=== PATIENT | female | born 1995 | race Caucasian/White ===

== ENCOUNTER → 2017-11-20 | Outpatient (CLI) | payer MEDICAID ==
[~2017-11-20] MED LIST: ACHYD1T PO; AMOX500C2 PO; IBUP-1773 PO; MULT-228 PO
--- NOTE | 2017-11-20 17:16 | Diagnostic Imaging Report ---
INDICATION: Gestational age determination. TECHNIQUE: Multiple real-time grayscale images were obtained over the gravid uterus. COMPARISON: None FINDINGS: There is a single living intrauterine in variable presentation. The placenta is posterior, not low. Amniotic fluid volume was within normal limits. heart rate was 143 beats per minute. Estimated gestational age is 16 weeks 3 days. IMPRESSION: Single living intrauterine with estimated gestational age of 16 weeks 3 days plus or minus 1-1/2 weeks. Dictated by: Dictated on workstation # [id number]
== END ==
LOC: RAD 16:39
PROVIDERS: ATTEND Family Medicine
DX: Z34.92 Encounter for supervision of normal pregnancy, unspecified, second trimester (principal); Z3A.16 16 weeks gestation of pregnancy
CPT/HCPCS: 76805

== ENCOUNTER → 2018-02-04 | Outpatient (CLI) | payer MEDICAID ==
[~2018-02-04] MED LIST changes: +ACHD5005 PO; +DOCU100C37 PO; +IBUP-844 PO
--- NOTE | 2018-02-04 16:52 | Diagnostic Imaging Report ---
INDICATION: Survey and evaluate cervical length. TECHNIQUE: Multiple Real-time grayscale images were obtained over the gravid uterus. COMPARISON: 11/20/2017. FINDINGS: There is a single living intrauterine in breech presentation. There is a normal volume of amniotic fluid. The placenta is posterior with no previa. The anatomical evaluation is unremarkable apart from the fact that a four-chamber heart was not well seen. There was a three-vessel cord. The heart is 150 BPM and regular. The cervical length is 2 cm. The maternal adnexa are unremarkable. The sonographically estimated gestational age is 27 weeks 5 days. IMPRESSION: There is a single living intrauterine with a sonographically estimated gestational age of 27 weeks 5 days and an estimated date of confinement of 05/01/2018. A four chamber heart was not well visualized on today's exam. The cervix is shortened to 2 cm. Dictated by: Dictated on workstation # [id number]
== END ==
LOC: RAD 14:22
PROVIDERS: ATTEND Family Medicine
DX: Z36.89 Encounter for other specified antenatal screening (principal); O26.872 Cervical shortening, second trimester; Z3A.27 27 weeks gestation of pregnancy
CPT/HCPCS: 76805

== ENCOUNTER 2018-03-16 22:45 | Outpatient (CLI) | payer MEDICAID ==
[~2018-03-16] VITALS: Ht 158.8 cm; Wt 80.5 kg
[~2018-03-16 22:45] MED LIST changes: -ACHD5005 PO; -DOCU100C37 PO; -IBUP-844 PO
[2018-03-16 23:07] VITALS: BP 118/57
[2018-03-16] MEDS ORDERED: NS IV 1000 ML 1,000 ML ONE (23:10)
[2018-03-16] MEDS ORDERED: NS IV 1000 ML 1,000 ML IV ONE (23:15)
--- NOTE | 2018-03-19 15:56 | Physician Query-Final Dx ---
TJ CANTU 03/19/18 1556: Clinic Account Progress/Dx Physician Query: Please give diagnosis Date of Service March 16, 2018 at 22:45 AIXA VIRK MD 03/28/18 0938: Clinic Account Progress/Dx DIAGNOSIS: Diagnosis 33 weeks gestation Abdominal pain in TJ CANTU March 19, 2018 15:56 AIXA VIRK MD Mar 28, 2018 09:38
== END 2018-03-17 00:33 | disposition home or self-care (01) ==
LOC: WSo 22:45 → LDRP 22:45 → WSo 03-17 00:33
PROVIDERS: ATTEND Family Medicine
DX: O99.89 Other specified diseases and conditions complicating pregnancy, childbirth and the puerperium (principal); R10.9 Unspecified abdominal pain; Z3A.33 33 weeks gestation of pregnancy
CPT/HCPCS: 99213

== ENCOUNTER 2018-04-09 01:21 | Inpatient (IN) | payer MEDICAID ==
[~2018-04-09] VITALS: Ht 157.5 cm; Wt 80.8 kg
[2018-04-09] VITALS (7 sets, daily range): BP systolic 90–125; BP diastolic 53–88
--- OUTSIDE RECORDS SUMMARY | 2018-04-09 01:56 | XMS REPORT | Continuity of Care Document ---
Demographics Preferred Language Unknown Marital Status Unknown Religion Affiliation Unknown Race Unknown Ethnic Group Unknown Author Author Formerly [facility] Address Unknown Phone Unavailable Allergies Active Description Code Type Severity Reaction Onset Reported/Identified Relationship to Patient Clinical Status Yes No Known Drug Allergies [id number] Drug Allergy Unknown N/A 03/11/2012 Medications There is no data. Problems Date Dx Coded Attending Type Code Diagnosis Diagnosed By 11/18/2009 564.00 CONSTIPATION CHRONIC 11/18/2009 789.00 abdominal pain 12/16/2009 009.1 COLITIS, ENTERITIS, AND GASTROENTERITIS OF PRESUMED INFECTIOUS ORIGIN 06/16/2010 V25.40 CONTRACEPTIVE SURVEILLANCE UNSPECIFIED 08/01/2010 388.70 EAR ACHE 12/02/2010 461.9 SINUSITIS ACUTE 12/02/2010 462 ACUTE PHARYNGITIS 03/11/2012 Ot 462 ACUTE PHARYNGITIS 06/20/2012 346.90 HEADACHE, MIGRAINE 06/20/2012 651.00 , HIGH RISK W/ MULTIPLE GESTATIONS 08/14/2013 ABBY VAZQUEZ MD Ot 649.53 SPOTTING COMP , ANTEPARTUM COND 09/27/2013 ABBY VAZQUEZ MD Ot 623.5 NONINFECT VAG LEUKORRHEA 09/27/2013 ABBY VAZQUEZ MD Ot 654.73 ABNORM VAGINA-ANTEPARTUM 10/22/2013 ABBY VAZQUEZ MD Ot 650 NORMAL DELIVERY 10/22/2013 ABBY VAZQUEZ MD Ot V27.0 DELIVER-SINGLE LIVEBORN 10/17/2014 ABBY VAZQUEZ MD Ot 649.63 10/17/2014 ABBY VAZQUEZ MD Ot 649.63 10/17/2014 ABBY VAZQUEZ MD Ot 658.03 05/11/2016 ABBY VAZQUEZ MD, Ot 649.63 UTERINE SIZE DATE DISCREPANCY, ANTEPARTU 05/11/2016 ABBY VAZQUEZ MD, Ot 649.63 UTERINE SIZE DATE DISCREPANCY, ANTEPARTU 05/11/2016 ABBY VAZQUEZ MD Ot 658.03 OLIGOHYDRAMNIOS-ANTEPAR 05/12/2016 ABBY VAZQUEZ MD, Ot Z36 ENCOUNTER FOR SCREENING OF MOT 05/12/2016 ABBY VAZQUEZ MD, Ot Z3A.08 8 WEEKS GESTATION OF 05/12/2016 ABBY VAZQUEZ MD, Ot Z36 ENCOUNTER FOR SCREENING OF MOT 05/12/2016 ABBY VAZQUEZ MD, Ot Z3A.08 8 WEEKS GESTATION OF 07/07/2016 ABBY VAZQUEZ MD, Ot Z36 ENCOUNTER FOR SCREENING OF MOT 07/07/2016 ABBY VAZQUEZ MD, Ot Z3A.08 8 WEEKS GESTATION OF 07/07/2016 ABBY VAZQUEZ MD Ot Z36 ENCOUNTER FOR SCREENING OF MOT 07/07/2016 ABBY VAZQUEZ MD, Ot Z3A.08 8 WEEKS GESTATION OF 07/18/2016 ABBY AVZQUEZ MD, Ot Z36 ENCOUNTER FOR SCREENING OF MOT 07/18/2016 ABBY VAZQUEZ MD, Ot Z3A.08 8 WEEKS GESTATION OF 07/31/2016 ABBY VAZQUEZ MD Ot Z36 ENCOUNTER FOR SCREENING OF MOT 08/09/2016 ABBY VAZQUEZ MD Ot Z36 ENCOUNTER FOR SCREENING OF MOT 09/24/2016 ABBY VAZQUEZ MD Ot Z36 ENCOUNTER FOR SCREENING OF MOT 09/24/2016 ABBY VAZQUEZ MD, Ot Z3A.08 8 WEEKS GESTATION OF 09/24/2016 ABBY VAZQUEZ MD Ot Z36 ENCOUNTER FOR SCREENING OF MOT 09/24/2016 ABBY VAZQUEZ MD Ot Z36 ENCOUNTER FOR SCREENING OF MOT 09/24/2016 ABBY VAZQUEZ MD, Ot Z3A.08 8 WEEKS GESTATION OF 09/24/2016 ABBY VAZQUEZ MD Ot Z36 ENCOUNTER FOR SCREENING OF MOT 09/26/2016 TUNDE ACKERMAN DOA K Ot O60.03 LABOR WITHOUT DELIVERY, THIRD TR 09/26/2016 DAVIS ACKERMAN DO Ot Z3A.28 28 WEEKS GESTATION OF 10/16/2016 OLYA RAMACHANDRAN MD, Ot O42.913 PRETRM TOMASA ROM, UNSP TIME BETW RUPT AND 10/16/2016 OLYA RAMACHANDRAN MD, Ot Z3A.31 31 WEEKS GESTATION OF 11/20/2017 ABBY VAZQUEZ MD, Ot Z36 ENCOUNTER FOR SCREENING OF MOT 11/20/2017 ABBY VAZQUEZ MD, Ot Z3A.08 8 WEEKS GESTATION OF 11/20/2017 ABBY VAZQUEZ MD, Ot Z36 ENCOUNTER FOR SCREENING OF MOT 11/21/2017 ABBY VAZQUEZ MD, Ot Z34.92 ENCNTR FOR SUPRVSN OF NORMAL PREG, UNSP, 11/21/2017 ABBY VAZQUEZ MD, Ot Z3A.16 16 WEEKS GESTATION OF 11/26/2017 ABBY VAZQUEZ MD, Ot Z34.92 ENCNTR FOR SUPRVSN OF NORMAL PREG, UNSP, 11/26/2017 ABBY VAZQUEZ MD, Ot Z3A.16 16 WEEKS GESTATION OF 12/04/2017 ABBY VAZQUEZ MD, Ot Z34.92 ENCNTR FOR SUPRVSN OF NORMAL PREG, UNSP, 12/04/2017 ABBY VAZQUEZ MD, Ot Z3A.16 16 WEEKS GESTATION OF 01/31/2018 ABBY VAZQUEZ MD, Ot Z36 ENCOUNTER FOR SCREENING OF MOT 01/31/2018 ABBY VAZQUEZ MD, Ot Z3A.08 8 WEEKS GESTATION OF 01/31/2018 ABBY VAZQUEZ MD, Ot Z36 ENCOUNTER FOR SCREENING OF MOT 01/31/2018 ABBY VAZQUEZ MD, Ot Z34.92 ENCNTR FOR SUPRVSN OF NORMAL PREG, UNSP, 01/31/2018 ABBY VAZQUEZ MD, Ot Z3A.16 16 WEEKS GESTATION OF 02/19/2018 ABBY VAZQUEZ MD, Ot O26.872 CERVICAL SHORTENING, SECOND TRIMESTER 02/19/2018 ABBY VAZQUEZ MD, Ot Z36.89 ENCOUNTER FOR OTHER SPECIFIED 02/19/2018 ABBY VAZQUEZ MD, Ot Z3A.27 27 WEEKS GESTATION OF 03/29/2018 AIXA VIRK MD, Ot O99.89 OTH DISEASES AND CONDITIONS COMPL PREG/C 03/29/2018 AIXA VIRK MD, Ot R10.9 UNSPECIFIED ABDOMINAL PAIN 03/29/2018 AIXA VIRK MD, Ot Z3A.33 33 WEEKS GESTATION OF Procedures Code Description Performed By Performed On 96.49 10/19/2013 73.6 10/20/2013 Results Test Result Range Complete blood count (CBC) with automated white blood cell (WBC) differential - 09/24/16 10:00 Blood leukocytes automated count (number/volume) 9.2 10*3/uL 4.3-11.0 Blood erythrocytes automated count (number/volume) 4.19 10*6/uL 4.35-5.85 Venous blood hemoglobin measurement (mass/volume) 12.5 g/dL 11.5-16.0 Blood hematocrit (volume fraction) 38 % 35-52 Automated erythrocyte mean corpuscular volume 90 [foz_us] 80-99 Automated erythrocyte mean corpuscular hemoglobin (mass per erythrocyte) 30 pg 25-34 Automated erythrocyte mean corpuscular hemoglobin concentration measurement ( mass/volume) 33 g/dL 32-36 Automated erythrocyte distribution width ratio 13.7 % 10.0-14.5 Automated blood platelet count (count/volume) 207 10*3/uL 130-400 Automated blood platelet mean volume measurement 11.5 [foz_us] 7.4-10.4 Automated blood neutrophils/100 leukocytes 73 % 42-75 Automated blood lymphocytes/100 leukocytes 16 % 12-44 Blood monocytes/100 leukocytes 9 % 0-12 Automated blood eosinophils/100 leukocytes 1 % 0-10 Automated blood basophils/100 leukocytes 0 % 0-10 Blood neutrophils automated count (number/volume) 6.7 10*3 1.8-7.8 Blood lymphocytes automated count (number/volume) 1.5 10*3 1.0-4.0 Blood monocytes automated count (number/volume) 0.8 10*3 0.0-1.0 Automated eosinophil count 0.1 10*3/uL 0.0-0.3 Automated blood basophil count (count/volume) 0.0 10*3/uL 0.0-0.1 Comprehensive metabolic panel - 09/24/16 10:00 Serum or plasma sodium measurement (moles/volume) 139 mmol/L 135-145 Serum or plasma potassium measurement (moles/volume) 3.5 mmol/L 3.6-5.0 Serum or plasma chloride measurement (moles/volume) 110 mmol/L 98-107 Carbon dioxide 22 mmol/L 21-32 Serum or plasma anion gap determination (moles/volume) 7 mmol/L 5-14 Serum or plasma urea nitrogen measurement (mass/volume) 6 mg/dL 7-18 Serum or plasma creatinine measurement (mass/volume) 0.58 mg/dL 0.60-1.30 Serum or plasma urea nitrogen/creatinine mass ratio 10 NRG Serum or plasma creatinine measurement with calculation of estimated glomerular filtration rate > NRG Serum or plasma glucose measurement (mass/volume) 78 mg/dL 70-105 Serum or plasma calcium measurement (mass/volume) 9.3 mg/dL 8.5-10.1 Serum or plasma total bilirubin measurement (mass/volume) 0.2 mg/dL 0.1-1.0 Serum or plasma alkaline phosphatase measurement (enzymatic activity/volume) 87 U/L 40-136 Serum or plasma aspartate aminotransferase measurement (enzymatic activity/ volume) 15 U/L 5-34 Serum or plasma alanine aminotransferase measurement (enzymatic activity/volume ) 13 U/L 0-55 Serum or plasma protein measurement (mass/volume) 6.9 g/dL 6.4-8.2 Serum or plasma albumin measurement (mass/volume) 3.6 g/dL 3.2-4.5 [id number] - 09/24/16 10:00 [id number] SPECIMEN AVAILABLE NRG Bacteria identification in genital specimen by aerobe culture - 09/24/16 11:15 FREE TEXT EXTERNAL PLUS NORMAL SILVANO NRG QUANTITY OF GROWTH Moderate Growth NRG Bacteria identification in genital specimen by aerobe culture [id number] NRG Neisseria gonorrhoeae detection by organism specific culture - 09/24/16 11:15 Neisseria gonorrhoeae detection by organism specific culture TNP NRG Streptococcus agalactiae detection by organism specific culture - 09/24/16 11: 15 Streptococcus agalactiae detection by organism specific culture TNP NRG Chlamydia trachomatis DNA detection by probe and signal amplification method - 09/24/16 11:15 Chlamydia trachomatis DNA detection by probe and target amplification method Negative Negative Complete blood count (CBC) with automated white blood cell (WBC) differential - 10/16/16 12:13 Blood leukocytes automated count (number/volume) 10.2 10*3/uL 4.3-11.0 Blood erythrocytes automated count (number/volume) 4.14 10*6/uL 4.35-5.85 Venous blood hemoglobin measurement (mass/volume) 12.3 g/dL 11.5-16.0 Blood hematocrit (volume fraction) 37 % 35-52 Automated erythrocyte mean corpuscular volume 88 [foz_us] 80-99 Automated erythrocyte mean corpuscular hemoglobin (mass per erythrocyte) 30 pg 25-34 Automated erythrocyte mean corpuscular hemoglobin concentration measurement ( mass/volume) 34 g/dL 32-36 Automated erythrocyte distribution width ratio 13.4 % 10.0-14.5 Automated blood platelet count (count/volume) 190 10*3/uL 130-400 Automated blood platelet mean volume measurement 11.5 [foz_us] 7.4-10.4 Automated blood neutrophils/100 leukocytes 80 % 42-75 Automated blood lymphocytes/100 leukocytes 13 % 12-44 Blood monocytes/100 leukocytes 6 % 0-12 Automated blood eosinophils/100 leukocytes 1 % 0-10 Automated blood basophils/100 leukocytes 0 % 0-10 Blood neutrophils automated count (number/volume) 8.1 10*3 1.8-7.8 Blood lymphocytes automated count (number/volume) 1.4 10*3 1.0-4.0 Blood monocytes automated count (number/volume) 0.7 10*3 0.0-1.0 Automated eosinophil count 0.1 10*3/uL 0.0-0.3 Automated blood basophil count (count/volume) 0.0 10*3/uL 0.0-0.1 Blood type T Indirect antibody screen panel - 10/16/16 12:13 ABO+Rh group AP NRG Transfusion band number [id number] NRG Blood group antibody screen NEGATIVE NRG Encounters ACCT No. Visit Date/Time Discharge Status Pt. Type Provider Facility Loc./Unit Complaint [id number] 06/20/2012 15:38:00 06/20/2012 23:59:59 CLS Outpatient [id number] 01/03/2013 15:49:19 RECURRING [facility] 09/26/2013 23:57:37 ACT Document Registration [id number] 03/16/2018 22:45:00 03/17/2018 00:33:00 DIS Outpatient AIXA VIRK MD [facility] WSo CRAMPING [id number] 02/04/2018 14:22:00 02/04/2018 23:59:59 CLS Outpatient ABBY VAZQUEZ MD [facility] RAD HX OF LABOR( CHECK CERVIX LENGTH) [id number] 11/20/2017 16:39:00 11/20/2017 23:59:59 CLS Outpatient ABBY VAZQUEZ MD [facility] RAD DATE [id number] 10/16/2016 11:49:00 10/16/2016 13:40:00 DIS Outpatient OLYA RAMACHANDRAN MD [facility] WSo [employer]PTURED [employer]ES [id number] 09/24/2016 01:30:00 09/26/2016 10:40:00 DIS Inpatient MEKA NAQVI DAVIS K [facility] LDRP CERVICAL DILATION [id number] 07/28/2016 15:27:00 07/28/2016 23:59:59 CLS Outpatient ABBY VAZQUEZ MD [facility] RAD SURVEY [id number] 05/11/2016 09:09:00 05/11/2016 23:59:59 CLS Outpatient ABBY VAZQUEZ MD [facility] RAD DATING [id number] 10/19/2013 20:37:00 10/22/2013 12:05:00 DIS Inpatient ABBY VAZQUEZ MD [facility] WS [id number] 09/26/2013 23:53:00 09/27/2013 02:12:00 DIS Outpatient ABBY VAZQUEZ MD [facility] WSo [id number] 08/21/2013 11:53:00 08/21/2013 23:59:59 CLS Outpatient ABBY VAZQUEZ MD [facility] RAD [id number] 08/14/2013 12:08:00 08/14/2013 14:20:00 DIS Outpatient ABBY VAZQUEZ MD [facility] WSo [id number] 06/12/2013 13:27:00 06/12/2013 23:59:59 CLS Outpatient ABBY VAZQUEZ MD [facility] RAD [id number] 03/27/2013 12:30:00 03/27/2013 23:59:59 CLS Outpatient ABBY VAZQUEZ MD [facility] RAD [id number] 03/11/2012 21:59:00 Document Registration
[2018-04-09] MEDS ORDERED: D5 LR IV SOLUTION 1,000 ML IV SCH (02:00)
[2018-04-09] MEDS ORDERED: CITRIC ACID/SOB CIT (BICITRA) 30 ML UDC ONE (02:05)
[2018-04-09] MEDS ORDERED: METOCLOPRAMIDE INJ 10 MG/2 ML (REGLAN) ONE (02:05)
[2018-04-09] MEDS: LACTATED RINGERS 1,000 ML IV SCH ×2 (02:06→02:14)
[2018-04-09] MEDS ORDERED: NS (IVPB) 50 ML ONE (02:06)
[2018-04-09] MEDS ORDERED: raNItidine 50 MG/2 ML INJ (ZANTAC) ONE (02:06)
[2018-04-09 02:09] LABS: BASOPHILS % (AUTO) 0 % (0-10); EOSINOPHILS # (AUTO) 0.2 10^3/uL (0.0-0.3); EOSINOPHILS % (AUTO) 2 % (0-10); HEMATOCRIT 35 % (35-52); HEMOGLOBIN 12.3 G/DL (11.5-16.0); LYMPHOCYTES # (AUTO) 1.5 X 10^3 (1.0-4.0); LYMPHOCYTES % (AUTO) 13 % (12-44); MEAN CORPUSCULAR HEMOGLOBIN 31 PG (25-34); MEAN CORPUSCULAR HGB CONC 35 G/DL (32-36); MEAN CORPUSCULAR VOLUME 89 FL (80-99); MEAN PLATELET VOLUME 12.1 FL (7.4-10.4); MONOCYTES # (AUTO) 1.1 X 10^3 (0.0-1.0); MONOCYTES % (AUTO) 9 % (0-12); NEUTROPHILS # (AUTO) 9.3 X 10^3 (1.8-7.8); NEUTROPHILS % (AUTO) 77 % (42-75); PLATELET COUNT 244 10^3/uL (130-400); RED BLOOD COUNT 3.95 10^6/uL (4.35-5.85); RED CELL DISTRIBUTION WIDTH 14.3 % (10.0-14.5); WHITE BLOOD COUNT 12.1 10^3/uL (4.3-11.0)
[2018-04-09] MEDS ORDERED: ceFAZolin 2 GM IV Premixed 50 ML IV ONE (02:11)
[2018-04-09] MEDS ORDERED: ceFAZolin 2 GM IV Premixed 50 ML ONE (02:12)
[2018-04-09] MEDS ORDERED: LACTATED RINGERS 1,000 ML IV PRN (02:13)
[2018-04-09] MEDS ORDERED: CITRIC ACID/SOB CIT (BICITRA) 30 ML UDC PO ONE (02:15)
[2018-04-09] MEDS ORDERED: raNItidine INJECTION 50 MG in NS (IVPB) 50 ML IV ONE (02:15)
[2018-04-09] MEDS ORDERED: TERBUTALINE INJ 1 MG/ML (BRETHINE) AMP SC ONE (02:15)
[2018-04-09] MEDS ORDERED: METOCLOPRAMIDE INJ 10 MG/2 ML (REGLAN) IV ONE (02:15)
--- NOTE | 2018-04-09 02:28 | History & Physical-OB ---
OB - Chief Complaint & HPI Date/Time Date of Admission: Date of Admission: Apr 09, 2018 at 01:52 Time Seen by Provider: 02:00 Chief Complaint/History OB-Reason for Admission/Chief: Onset of Labor (at 36w3d) Hx : 3 Hx Para: 2 Expected Date of Delivery: May 04, 2018 Gestational Age in Weeks: 36 Gestational Age in Days: 3 Indication for : malpresentation (breech) Admission Nurse Assessment Rev: Yes Allergies and Home Medications Allergies Coded Allergies: No Known Drug Allergies (Unverified , 03/11/12) Home Medications Multivitamin 1 Each Tab.chew, 1 EACH PO DAILY, (Reported) Patient Home Medication List Home Medication List Reviewed: Yes OB - History Hx of Present Care: Yes Ultrasounds: Normal mid trimester US Obstetrical Complications: Other ( labor) Medical Complications: None Delivery History Hx Blood Disorders: No Adverse Rxn to Tranfusion: No Patient Past Medical History denies Social History/Family History Recent Infectious Disease Expo: No Immunizations Tetanus Booster (TDap): Unknown OB - Admission Exam Physical Exam Heart: Rhythm Normal Lungs: Clear Abdomen: Gravid Cervical Dilatation: 8cm Effacement: 75% (-80%) Membranes: Intact Heart Rate: 140's Accelerations: Accelerations Present Contractions on Admission: >10 Minutes Apart Intensity: Moderate Labs Laboratory Tests Test 04/09/18 01:45 Range/Units White Blood Count 12.1 H 4.3-11.0 10^3/uL Red Blood Count 3.95 L 4.35-5.85 10^6/uL Hemoglobin 12.3 11.5-16.0 G/DL Hematocrit 35 35-52 % Mean Corpuscular Volume 89 80-99 FL Mean Corpuscular Hemoglobin 31 25-34 PG Mean Corpuscular Hemoglobin Concent 35 32-36 G/DL Red Cell Distribution Width 14.3 10.0-14.5 % Platelet Count 244 130-400 10^3/uL Mean Platelet Volume 12.1 H 7.4-10.4 FL Neutrophils (%) (Auto) 77 H 42-75 % Lymphocytes (%) (Auto) 13 12-44 % Monocytes (%) (Auto) 9 0-12 % Eosinophils (%) (Auto) 2 0-10 % Basophils (%) (Auto) 0 0-10 % Neutrophils # (Auto) 9.3 H 1.8-7.8 X 10^3 Lymphocytes # (Auto) 1.5 1.0-4.0 X 10^3 Monocytes # (Auto) 1.1 H 0.0-1.0 X 10^3 Eosinophils # (Auto) 0.2 0.0-0.3 10^3/uL Basophils # (Auto) 0.0 0.0-0.1 10^3/uL OB - Assessment/Plan/Diagnosis Assessment Assessment: active labor Admission Dx 1. IUP at 36w3d gestation in labor 2. Breech presentation Admission Status: Inpatient Order (span 2 midnights) Reason for Inpatient Admission: Stat due to breech and advanced cervical dilation Plan Plan: Section (primary) Other Plan Dr Garcia and Surgery crew notified for stat . Terbutaline SQ given. ABBY VAZQUEZ MD Apr 09, 2018 02:28
[2018-04-09] MEDS ORDERED: BUPIVACAINE SPINAL 0.75% (SENSORCAINE) 2 ML AMP ONE (02:36)
[2018-04-09] MEDS ORDERED: LIDOCAINE PF 2% 5 ML (XYLOCAINE) VIAL ONE (02:38)
[2018-04-09] MEDS ORDERED: ONDANSETRON 4 MG/2 ML (SDV) Z0FRAN ONE (02:38)
[2018-04-09] MEDS ORDERED: OXYTOCIN/NORMAL SALINE 1,000 ML IV ONE (02:38)
--- NOTE | 2018-04-09 02:38 | Progress Note-Standard ---
Standard Progress Note Progress Notes/Assess & Plan Date Seen by Provider: Apr 09, 2018 Time Seen by Provider: 02:25 Progress/Assessment & Plan Called out to evaluate patient for STAT due to malpresentation. Bedside US done confirming complete/footling breech. 8-9 cm dilatation noted per Dr. Leo. Med Hx: no chronic med problems Surg Hx:none Allergies: none OB Hx , NVD x 2 1 delivery Meds: vit, Marilou till 36 weeks Diagnosis: Complete footling breech presentation P: Urgently proceed with ELAN NOYOLA DO Apr 09, 2018 2:38 am
[2018-04-09] MEDS ORDERED: fentaNYL INJECTION 100 MCG/2 ML AMP ONE (02:40)
[2018-04-09] MEDS ORDERED: OXYTOCIN/NORMAL SALINE 500 ML IV SCH (02:57)
[2018-04-09] MEDS ORDERED: HYDROmorphone 1 MG/ML (DILAUDID) 1 ML SYRINGE IV PRN (03:00)
[2018-04-09] MEDS ORDERED: MEASLES,MUMPS,RUBELLA 1 EA INJ SC SCH (03:00)
[2018-04-09] MEDS ORDERED: ONDANSETRON 4 MG/2 ML (SDV) Z0FRAN IVP PRN (03:00)
[2018-04-09] MEDS ORDERED: TETANUS,DIPTH,PERTUSS P/F (BOOSTRIX) 0.5 ML VIAL IM SCH (03:00)
--- NOTE | 2018-04-09 03:00 | Discharge Inst-Women's Service ---
Discharge Inst-Women's Serv Depart Medication/Instructions New, Converted or Re-Newed RX: RX on Chart Consults/Follow Up Additional Follow Up: Yes Orders/Referrals Dr. Garcia in 7-10 days and in 6 weeks Activity Activity: Activity as Tolerated Driving Instructions: No Driving for 1 Week NO SMOKING: NO SMOKING Nothing Inside Vagina: No Douching, No [place], No Tampons Diet Discharge Diet: No Restrictions Symptoms to Report to : Bleeding Excessive, Pain Increased, Fever Over 101 Degrees F, Vaginal Bleeding Increase, Questions/Concerns For Any Problems or Questions: Contact Your Physician Skin/Wound Care Infection Signs and Symptoms: Increased Redness, Foul Odor of Wound, Increased Drainage, Skin Itchy or Has a Rash, Increased Swelling, Temperature Above 101 F Operative Area Clean and Dry: Keep Incision Clean/Dry Stitches/Leonel/Dermabond: Dermabond, Care of Stitches Bathing Instructions: ELAN Olivas DO Apr 09, 2018 3:00 am
[2018-04-09 03:19] LABS: BILIRUBIN,URINE NEGATIVE (NEGATIVE); CLARITY,URINE CLEAR; COLOR,URINE YELLOW; GLUCOSE, URINE (UA) NEGATIVE (NEGATIVE); KETONES,URINE NEGATIVE (NEGATIVE); LEUKOCYTE ESTERASE ,URINE 3+ (NEGATIVE); NITRITE,URINE NEGATIVE (NEGATIVE); PH,URINE 7 (5-9); PROTEIN,URINE 1+ (NEGATIVE); UROBILINOGEN,URINE 1 MG/DL (NORMAL)
[2018-04-09 03:29] LABS: BACTERIA,URINE LARGE /HPF; RBC,URINE 0-2 /HPF; WBC,URINE 50-100 /HPF
[2018-04-09] MEDS ORDERED: PHENYLEPHRINE 100 MCG/ML 10 ML (ANESTHESIA) SYR ONE (03:40)
[2018-04-09] MEDS: KETOROLAC 30 MG/ML VIAL IVP SCH ×3 (03:45→16:43)
[2018-04-09] MEDS ORDERED: ONDANSETRON 4 MG/2 ML (SDV) Z0FRAN IV PRN (04:00)
[2018-04-09] MEDS ORDERED: NALOXONE 0.4 MG/ML 1 ML (NARCAN) VIAL IV PRN ×2 (04:00)
[2018-04-09] MEDS ORDERED: diphenhydrAMINE 50 MG/ML INJ (BENADRYL) IV PRN (04:00)
[2018-04-09] MEDS ORDERED: METOCLOPRAMIDE INJ 10 MG/2 ML (REGLAN) IV PRN (04:00)
[2018-04-09] MEDS ORDERED: CATHETER FLUSH 10 ML SYR IV SCH ×2 (06:00)
[2018-04-09] MEDS: HYDROcodone/APAP 5 MG/325 MG (LORTAB) TAB PO PRN ×3 (06:12→21:32)
[2018-04-09] MEDS: DOCUSATE SODIUM 100 MG (COLACE) CAP PO SCH ×2 (07:46→21:31)
--- NOTE | 2018-04-09 08:59 | OPERATIVE REPORT ---
DATE OF SERVICE: PREOPERATIVE DIAGNOSES: 1. A 23-year-old G3, P2 at 36 weeks and 2 days gestation. 2. Complete breech presentation with potential footling breech. POSTOPERATIVE DIAGNOSES: 1. A 23-year-old G3, P2 at 36 weeks and 2 days gestation. 2. Complete breech presentation with potential footling breech. PROCEDURE: Primary low transverse section. SURGEON: Jack Noyola DO. IMAGING TECH: Dr. Rudy Leo. ANESTHESIA: Spinal. ESTIMATED BLOOD LOSS: 350 mL. URINE OUTPUT: 350 mL clear at the end of the procedure. FLUIDS: 1800 mL of lactated Ringer's solution. FINDINGS: A live female infant weighing 5 pounds 8 ounces, Apgars of 9 and 9. Grossly normal appearing uterus, bilateral fallopian tubes and ovaries. SPECIMENS SENT: Placenta. INDICATIONS FOR PROCEDURE: This is a 23-year-old female, I was consulted urgently at home in the middle of night for presentation of 8 cm dilatation with a bulging bag and indeterminate presentation. Dr. Leo had scanned the patient at bedside and felt as if the patient was in breech presentation. When I arrived, I confirmed it was a complete breech presentation. I discussed with the patient briefly. Due to her urgent status, the risk of versus the risk of breech delivery as well as a complete presentation, this also increases the risk somewhat. Risk of the surgery was discussed with the patient in detail with her family present including the risk of bleeding, infection, damaging surrounding structures including but not limited to bowel, bladder, ureter, kidneys, risk of bleeding, risk of infection, risk from anesthesia and potentially need for blood transfusion and even . After everything was discussed with the patient, consent was obtained in the preoperative area and the patient was taken to the operating room once the operating room staff was available. OPERATIVE REPORT IN DETAIL: Once in the operating room, spinal anesthesia was found to be adequate. She was placed in supine position with leftward tilt, prepped and draped in normal sterile fashion. Anesthesia was tested and timeout was performed. A Pfannenstiel skin incision was then made with a knife and carried down to the underlying fascia using Bovie cautery. The fascial incision extended laterally using Bovie cautery. Superior edge of fascial incision was then grasped with Felix clamps, tented up and dissected off the underlying rectus muscles. The inferior aspect of the fascial incision was then grasped with Felix clamps, tented up and dissected off the underlying rectus muscle. Rectus muscles were then dissected down the midline using Morales scissors, which exposed the peritoneum which entered bluntly and extended using blunt traction. Kendall ring retractor was then placed within the peritoneal incision, which offers excellent lateral sidewall retraction. I then identified the lower uterine segment, it was found to be thinned down. I make an incision with a knife through the vesicouterine peritoneum and bluntly dissected off the lower uterine segment. I then pursued with myotomy until membranes were visualized. I extended the uterine incision laterally and superiorly using bandage scissors. I then performed amniotomy using Allis clamp. Clear fluid was noted. The was found in a complete breech presentation. The infant's buttock is then elevated up to the incision. With gentle fundal pressure, the buttocks were delivered through the incision up to the chest, which allows for delivery of the legs and feet. I then delivered the arms by slipping them across the chest and extend the baby's neck allowing for flexion and delivery of the head to the incision. The infant was then brought to the operative field where the nares and oropharynx were bulb suctioned. Cord was doubly clamped and cut. was taken off the field by Dr. Leo for further assessment. Cord blood was collected, 3-vessel cord with intact placenta was delivered spontaneously thereafter. IV Pitocin was initiated to facilitate uterine retraction. Uterine fundus became firmer with bimanual massage. Uterus was then exteriorized and cleared of all endometrial clots and debris. I then proceeded with closing the uterine incision using 0 Vicryl suture in a running locked fashion. A second layer of imbricating 0 Monocryl was placed. Excellent hemostasis was noted after doing so. I then placed the uterus back within the pelvis and copiously irrigated the pelvis using normal saline. There is no active bleeding noted from any of my dissection planes. I placed Interceed antiadhesive over my low transverse incision and proceeded with closing the peritoneum using 3-0 Vicryl suture in running fashion. The rectus muscle was reapproximated using 3-0 Vicryl suture in interrupted fashion. The fascia was reapproximated using 0 Vicryl suture in running fashion, subcutaneous tissue was reapproximated using 3-0 plain in an interrupted subcutaneous stitch and the skin reapproximated using 4-0 Monocryl running subcuticular. Dermabond was applied to the incision. A sterile dressing was adhesed with white tape. The patient tolerated the procedure well and sent to recovery in stable condition. Lap and sponge counts were correct at the end of procedure. Instrument count was correct as well. Two grams Ancef was given preoperatively for infection prophylaxis. Job ID: [id number] DocumentID: [id number] Dictated Date: 04/09/2018 03:44:36 Flight Inspector Date: 04/09/2018 08:58:56 Dictated By: JACK NOYOLA DO
[2018-04-10] MEDS: IBUPROFEN 600 MG (MOTRIN) TAB PO SCH ×4 (00:18→18:36)
[2018-04-10 00:20] VITALS: BP 112/76
[2018-04-10 00:40] VITALS: BP 129/79
[2018-04-10 03:55] VITALS: BP 113/75
[2018-04-10] MEDS: HYDROcodone/APAP 5 MG/325 MG (LORTAB) TAB PO PRN ×4 (03:58→20:58)
[2018-04-10 06:59] LABS: BASOPHILS % (AUTO) 0 % (0-10); EOSINOPHILS # (AUTO) 0.5 10^3/uL (0.0-0.3); EOSINOPHILS % (AUTO) 5 % (0-10); HEMATOCRIT 31 % (35-52); HEMOGLOBIN 10.6 G/DL (11.5-16.0); LYMPHOCYTES # (AUTO) 1.9 X 10^3 (1.0-4.0); LYMPHOCYTES % (AUTO) 20 % (12-44); MEAN CORPUSCULAR HEMOGLOBIN 32 PG (25-34); MEAN CORPUSCULAR HGB CONC 35 G/DL (32-36); MEAN CORPUSCULAR VOLUME 91 FL (80-99); MONOCYTES # (AUTO) 0.7 X 10^3 (0.0-1.0); MONOCYTES % (AUTO) 8 % (0-12); NEUTROPHILS # (AUTO) 6.2 X 10^3 (1.8-7.8); NEUTROPHILS % (AUTO) 67 % (42-75); PLATELET COUNT 133 10^3/uL (130-400); RED BLOOD COUNT 3.37 10^6/uL (4.35-5.85); RED CELL DISTRIBUTION WIDTH 14.5 % (10.0-14.5); WHITE BLOOD COUNT 9.4 10^3/uL (4.3-11.0)
[2018-04-10 07:55] VITALS: BP 107/67
[2018-04-10] MEDS: DOCUSATE SODIUM 100 MG (COLACE) CAP PO SCH ×2 (09:39→20:58)
[2018-04-10 11:57] VITALS: BP 123/83
--- NOTE | 2018-04-10 16:18 | Postpartum Progress Note ---
Note Note Day #1 Subjective: Patient is without complaints. Ambulating, voiding. Tolerating a regular diet without nausea or vomiting. Normal lochia. Pain is well controlled with oral pain medications. Objective: Vital Sign - Last 24 Hours 04/09/18 04/09/18 04/10/18 04/10/18 16:30 21:25 00:20 03:55 Temp 97.6 97.4 97.5 97.8 Pulse 76 90 86 85 Resp 18 18 18 18 B/P (MAP) 112/72 (85) 116/77 (90) 112/76 (88) 113/75 (88) Pulse Ox 98 97 96 97 O2 Delivery Room Air Room Air Room Air Room Air 04/10/18 04/10/18 07:55 11:57 Temp 98.1 98.0 Pulse 79 94 Resp 18 18 B/P (MAP) 107/67 (80) 123/83 (96) Pulse Ox 98 98 O2 Delivery Room Air Room Air Intake and Output 04/09/18 04/09/18 04/10/18 15:00 23:00 07:00 Intake Total 500 ml 1300 ml 1700 ml Output Total 1900 ml 1900 ml Balance 500 ml -600 ml -200 ml Physical Exam: General - Alert and oriented, no apparent distress Abdomen - Soft, appropriately tender to palpation, non-distended, fundus firm at umbilicus Extremities - no edema, negative Gavi's bilaterally Incision- c/d/i Assessment: POD 1 PLTCS Acute blood loss anemia Plan: Routine care. Encourage breast feeding. Encourage ambulation. Ferrous sulfate supplementation. Plan for discharge tomorrow Vitals - Labs Vital Signs - I&O Vital Signs Date Time Temp Pulse Resp B/P (MAP) Pulse Ox O2 Delivery O2 Flow Rate FiO2 04/10/18 11:57 98.0 94 18 123/83 (96) 98 Room Air 04/10/18 07:55 98.1 79 18 107/67 (80) 98 Room Air 04/10/18 03:55 97.8 85 18 113/75 (88) 97 Room Air 04/10/18 00:20 97.5 86 18 112/76 (88) 96 Room Air 04/09/18 21:25 97.4 90 18 116/77 (90) 97 Room Air 04/09/18 16:30 97.6 76 18 112/72 (85) 98 Room Air I & O 04/10/18 07:00 Intake Total 3500 ml Output Total 3800 ml Balance -300 ml Labs Laboratory Tests 04/10/18 05:39: White Blood Count 9.4, Red Blood Count 3.37L, Hemoglobin 10.6L, Hematocrit 31L, Mean Corpuscular Volume 91, Mean Corpuscular Hemoglobin 32, Mean Corpuscular Hemoglobin Concent 35, Red Cell Distribution Width 14.5, Platelet Count 133, Mean Platelet Volume 12.0H, Neutrophils (%) (Auto) 67, Lymphocytes (%) (Auto) 20 , Monocytes (%) (Auto) 8, Eosinophils (%) (Auto) 5, Basophils (%) (Auto) 0, Neutrophils # (Auto) 6.2, Lymphocytes # (Auto) 1.9, Monocytes # (Auto) 0.7, Eosinophils # (Auto) 0.5H, Basophils # (Auto) 0.0 Microbiology 04/09/18 Urine Culture - Final, Complete See Comments ELAN NOYOLA DO Apr 10, 2018 4:18 pm
[2018-04-10 18:15] VITALS: BP 122/86
[2018-04-11 00:40] VITALS: BP 129/79
[2018-04-11] MEDS: IBUPROFEN 600 MG (MOTRIN) TAB PO SCH ×2 (00:40→06:23)
[2018-04-11] MEDS: HYDROcodone/APAP 5 MG/325 MG (LORTAB) TAB PO PRN ×2 (02:17→09:29)
[2018-04-11 06:24] VITALS: BP 131/89
[2018-04-11] MEDS ORDERED: ACHD5005 PO (07:40)
[2018-04-11] MEDS ORDERED: DOCU100C37 PO (07:40)
[2018-04-11] MEDS ORDERED: IBUP-844 PO (07:40)
[2018-04-11 08:42] VITALS: BP 108/69
[2018-04-11] MEDS: DOCUSATE SODIUM 100 MG (COLACE) CAP PO SCH (08:42)
--- NOTE | 2018-04-11 09:15 | Postpartum Progress Note ---
Note Note Day # 2 Subjective: Patient is without complaints. Ambulating, voiding. Tolerating a regular diet without nausea or vomiting. Normal lochia. Pain is well controlled with oral pain medications. [] feeding. [] Objective: Vital Sign - Last 24 Hours 04/10/18 04/10/18 04/11/18 04/11/18 11:57 18:15 00:40 06:24 Temp 98.0 98.2 98.2 97.8 Pulse 94 91 90 93 Resp 18 18 18 18 B/P (MAP) 123/83 (96) 122/86 (98) 129/79 (96) 131/89 (103) Pulse Ox 98 99 98 99 O2 Delivery Room Air Room Air Room Air Room Air 04/11/18 08:42 Temp 99.4 Pulse 88 Resp 12 B/P (MAP) 108/69 (82) Pulse Ox 99 O2 Delivery Room Air Intake and Output 04/10/18 04/10/18 04/11/18 15:00 23:00 07:00 Intake Total 1500 ml 600 ml Output Total 1875 ml 1050 ml Balance -375 ml -450 ml Physical Exam: General - Alert and oriented, no apparent distress Abdomen - Soft, appropriately tender to palpation, non-distended, fundus firm at umbilicus Extremities - no edema, negative Gavi's bilaterally Incision- c/d/i Assessment: POD 2 PLTCS Plan: Routine care. Encourage breast feeding. Encourage ambulation. Ferrous sulfate supplementation. Plan for discharge today Vitals - Labs Vital Signs - I&O Vital Signs Date Time Temp Pulse Resp B/P (MAP) Pulse Ox O2 Delivery O2 Flow Rate FiO2 04/11/18 08:42 99.4 88 12 108/69 (82) 99 Room Air 04/11/18 06:24 97.8 93 18 131/89 (103) 99 Room Air 04/11/18 00:40 98.2 90 18 129/79 (96) 98 Room Air 04/10/18 18:15 98.2 91 18 122/86 (98) 99 Room Air 04/10/18 11:57 98.0 94 18 123/83 (96) 98 Room Air I & O 04/11/18 07:00 Intake Total 2100 ml Output Total 2925 ml Balance -825 ml Labs Microbiology 04/09/18 Urine Culture - Final, Complete See Comments ELAN NOYOLA DO Apr 11, 2018 9:15 am
[2018-04-11 10:00] VITALS: BP 108/69
--- NOTE | 2018-04-11 13:27 | Anesthesia-Regional Post-Op ---
Regional Patient Condition Mental Status: Alert, Oriented x3 Circulation: Same as Pre-Op Headache: Absent Sensation: Full Recovery Motor Block: Absent Post Op Complications Complications None Follow Up Care/Instructions Patient Instructions None needed. Anesthesia/Patient Condition post date note for 04/10/18: Patient is doing well, no complaints, stable vital signs, no apparent adverse anesthesia problems. No complications reported per nursing. ALTHEA LIVE CRNA Apr 11, 2018 13:27
== END 2018-04-11 10:00 | disposition home or self-care (01) | DRG 765 ==
LOC: WSo 01:21 → LDRP 01:22 → WSo 01:51 → LDRP 01:52
PROVIDERS: ADMIT Family Medicine; ATTEND Family Medicine
PROC: 10D00Z1 Extraction of Products of Conception, Low, Open Approach (ICD-10-PCS; principal; 2018-04-09 02:52)
DX: O32.8XX0 Maternal care for other malpresentation of fetus, not applicable or unspecified (principal); O60.14X0 Preterm labor third trimester with preterm delivery third trimester, not applicable or unspecified; O90.81 Anemia of the puerperium; D62 Acute posthemorrhagic anemia; Z37.0 Single live birth; Z3A.36 36 weeks gestation of pregnancy
CPT/HCPCS: 36415; 81000; 85025; 86850; 86900; 86901; 87088; 94664; 99212

== ENCOUNTER 2019-11-07 20:16 | Emergency (ER) | payer SELFPAY ==
[~2019-11-07] VITALS: Ht 160 cm; Wt 68.2 kg
[~2019-11-07 20:16] MED LIST changes: +ACHD5005 PO; +DOCU100C37 PO; +IBUP-844 PO
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
--- NOTE | 2019-11-07 21:12 | Diagnostic Imaging Report ---
EXAM: Sacrum and coccyx. INDICATION: Fall. Tailbone pain. COMPARISON: None. FINDINGS: No fracture or malalignment. No suspicious osteoblastic or lytic lesion. Surgical clips in the pelvis. IMPRESSION: No acute radiographic findings in the sacrum or coccyx. Dictated by: Dictated on workstation # [id number]
[2019-11-07 21:48] VITALS: BP 126/79
== END 2019-11-07 21:50 | disposition home or self-care (01) ==
LOC: EDUNIT# 20:16 → ER 20:19
DX: S30.0XXA Contusion of lower back and pelvis, initial encounter (principal); F17.210 Nicotine dependence, cigarettes, uncomplicated; W18.39XA Other fall on same level, initial encounter
CPT/HCPCS: 72220

== ENCOUNTER 2022-12-27 20:30 | Emergency (ER) | payer SELFPAY ==
[2022-12-27] MEDS ORDERED: ACHD5005 PO (20:50)
--- NOTE | 2022-12-27 20:51 | ED EENT ---
History of Present Illness General Chief Complaint: Dental Problems/Pain Stated Complaint: DENTAL PAIN Source: patient Exam Limitations: no limitations (SUSI GORDON) History of Present Illness Date Seen by Provider: Dec 27, 2022 Time Seen by Provider: 20:49 Initial Comments Patient is a 27-year-old female presents ED with right lower dental pain for the past 2 weeks. Patient reports several decayed teeth. She states she had a small abscess to her left upper tooth a few days ago she popped resulted in purulent drainage. She states she has had a tooth pulled in her right upper jaw few years ago. She states she has sensitivity with brushing her teeth or eating or drinking. Rating pain to the right ear. She went to [facility] on Sunday was prescribed clindamycin. She states she attempted to call the oral surgeon and was recommended to come to the ER. She denies any facial swelling, redness, fever, chills, throat pain, headache, dizziness. She also reports using salt water, Tylenol ibuprofen without much improvement. (SUSI GORDON) Allergies and Home Medications Allergies Coded Allergies: No Known Drug Allergies (Unverified , 03/11/12) Patient Home Medication List Home Medication List Reviewed: Yes (SUSI GORDON) Docusate Sodium (Docusate Sodium) 100 Mg Capsule, 100 MG PO BID Prescribed by: ELAN NOYOLA on 04/11/18 0740 Hydrocodone Bit/Acetaminophen (Lortab 5 Mg Tablet) 1 Tab Tab, 1-2 TAB PO Q4H PRN for PAIN-MODERATE Prescribed by: ELAN NOYOLA on 04/11/18 0740 Hydrocodone/Acetaminophen (Hydrocodone-Acetamin 5-325 mg) 5 Mg-325 Mg Tablet, 1 TAB PO Q4H PRN for PAIN-MODERATE (5-7) Prescribed by: MARTÍN PETERS on 12/27/222050 Ibuprofen (Ibu) 600 Mg Tablet, 600 MG PO Q6H Prescribed by: ELAN NOYOLA on 04/11/18 0740 Multivitamin (Flintstones) 1 Each Tab.chew, 1 EACH PO DAILY, (Reported) Entered as Reported by: VANDANA CLEVELAND on 09/24/16 0145 Review of Systems Review of Systems Constitutional: No chills, No diaphoresis, No fever, No malaise Eyes: Denies Blindness, Denies Drainage, Denies Pain, Denies Photophobia Ears: Denies Dizziness, Denies Bloody Discharge, Denies Clear Discharge Nose: denies clots, denies congestion, denies bloody discharge Mouth: denies loose teeth, denies clear discharge; other (Dental pain) Throat: denies swelling, denies discharge Respiratory: No cough, No dyspnea on exertion Cardiovascular: No chest pain Gastrointestinal: No abdominal pain, No diarrhea, No nausea, No vomiting Musculoskeletal: No back pain, No joint pain Skin: No change in color, No change in hair/nails (SUSI GORDON) Past Jnlnygh-Piufwj-Hwbrts Hx Patient Social History Tobacco Use?: No Substance use?: No Alcohol Use?: No (SUSI GORDON) Immunizations Up To Date Tetanus Booster (TDap): Unknown Influenza Vaccine Up-to-Date: No; Not Current (SUSI GORDON) Seasonal Allergies Seasonal Allergies: No (SUSI GORDON) Past Medical History Surgeries: Yes Section Respiratory: No Cardiac: No Neurological: No Reproductive Disorders: No Genitourinary: No Gastrointestinal: No Musculoskeletal: No Endocrine: No HEENT: No Cancer: No Psychosocial: No Integumentary: No Blood Disorders: No Adverse Reaction/Blood Tranf: No (SUSI GORDON) Family Medical History Family history: Cardiovascular disease (MATERNAL GRANDFATHER HAS COPD. ) Stroke (MATERNAL GRANDFATHER ) No Family History of: Abdominal aortic aneurysm Hatillo's disease Alcoholism Aphasia Cancer Cancer of colon Cataract Chest pain Congenital heart disease Congestive heart failure Cystic fibrosis Dementia Dysphagia Family history: Allergy Family history: Alzheimer's disease Family history: Arthritis Family history: Asthma Family history: Breast disease Family history: Coronary thrombosis Family history: Diabetes mellitus Family history: Gastrointestinal disease Family history: Glaucoma Family history: Hypertension Family history: Osteoporosis Family history: Thyroid disorder Headache Hearing loss Heart disease Hereditary disease History of - anemia History of - disorder History of - respiratory disease History of drug abuse Human immunodeficiency virus (HIV) seropositivity Hypercholesterolemia Infertile Kidney disease Malignant neoplasm of lung Myocardial infarction Parkinson's disease Prostate cancer Psychotic disorder Seizure disorder Tuberculosis Visual impairment No Pertinent Family Hx (SUSI GORDON) Physical Exam Vital Signs Vital Signs - First Documented 12/27/22 20:39 Temp 36.5 Pulse 86 Resp 20 B/P (MAP) 131/92 (105) Pulse Ox 97 O2 Delivery Room Air (PATRICIA KAYE MD) Height, Weight, BMI Height: 5'2.00" Weight: 165lbs. 3.0oz. 74.068126vd; 26.00 BMI Method:Estimated General Appearance: WD/WN, no apparent distress Eyes: bilateral eye normal inspection, bilateral eye PERRL, bilateral eye EOMI Ears: bilateral ear auricle normal, bilateral ear canal normal Nose: normal inspection Mouth/Throat: normal mouth inspection, pharynx normal, other (Decay noted to right lower molars. Gum erythema. No obvious abscess. 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, no motor/sensory deficits, alert, normal mood/affect, oriented x 3 Skin: normal color, warm/dry (SUSI GORDON) Progress/Results/Core Measures Results/Orders Medications Given in ED Current Medications Medications Dose Ordered Sig/Ricardo Route Start Time Stop Time Status Last Admin Dose Admin Acetaminophen/ Hydrocodone Bitart 1 ea ONCE ONCE PO 12/27/22 21:00 12/27/22 21:01 DC 12/27/22 20:59 1 EA (PATRICIA KAYE MD) Vital Signs/I&O 12/27/22 12/27/22 20:39 21:03 Temp 36.5 Pulse 86 86 Resp 20 20 B/P (MAP) 131/92 (105) 131/92 Pulse Ox 97 97 O2 Delivery Room Air Room Air (PATRICIA KAYE MD) Departure Communication (PCP) Concerning for apical abscess. Reviewed outpatient testing, H&P's. She was prescribed clindamycin on Sunday. She has taken 2 days worth of clindamycin. Has been taken Tylenol and ibuprofen without much improvement. Gargling salt water without much improvement. On exam no evidence abscess. Oropharynx patent. No facial swelling or erythema. Vital signs stable. Did offer dental block she refused. Discussed concerning for an apical abscess and extensive decay. She will need to continue with the clindamycin which is a good antibiotic. We will prescribe a few days worth of stronger pain medication as needed. Avoid cold foods. Discussed soft foods. Return precautions were discussed with patient such as obvious abscess, increased facial swelling or redness. She agrees. (SUSI GORDON) Impression Primary Impression: Pain, dental Disposition: HOME, SELF-CARE Condition: Stable Departure-Patient Inst. Decision time for Depature: 20:49 (SUSI GORDON) Referrals: ABBY VAZQUEZ MD (PCP/Family) Primary Care Physician Patient Instructions: Dental Pain Scripts Hydrocodone/Acetaminophen (Hydrocodone-Acetamin 5-325 mg) 5 Mg-325 Mg Tablet 1 TAB PO Q4H PRN for PAIN-MODERATE (5-7), #8 TAB Prov: SUSI GORDON 12/27/22 ATTENDING PHYSICIAN NOTE: I was physically present as attending physician in the emergency department during the care of this patient, but I was not directly involved in the decision making or delivery of care for this patient. (PATRICIA KAYE MD) SUSI GORDON Dec 27, 2022 20:51 PATRICIA KAYE MD Dec 28, 2022 05:48
[2022-12-27 21:03] VITALS: BP 131/92
== END 2022-12-27 21:03 | disposition home or self-care (01) ==
LOC: EDUNIT# 20:30 → ER 20:32
DX: K02.9 Dental caries, unspecified (principal); Z28.310 Unvaccinated for COVID-19
CPT/HCPCS: 99282

== ENCOUNTER 2023-01-16 16:40 | Emergency (ER) | payer SELFPAY ==
[~2023-01-16] VITALS: Ht 154.9 cm; Wt 68.0 kg
[2023-01-16 16:48] VITALS: BP 126/84
--- NOTE | 2023-01-16 16:58 | ED Integumentary General ---
General Stated Complaint: VAG ABSCESS Source: patient Exam Limitations: no limitations (SUSI GORDON) History of Present Illness Date Seen by Provider: Jan 16, 2023 Time Seen by Provider: 16:56 Initial Comments Patient is a 27-year-old female presents ED with an at abscess to her right labia. She noticed a red area 4 days ago. Increasing swelling, redness and pain to the right sided labia. She did notice some mild drainage after attempting to drain it at home. She went to [facility] and was recommended come to the ER for further evaluation. Not currently on antibiotics. Has been applying topical Neosporin without much improvement. Denies any difficulty urinating, fever, chills, nausea, vomit, diarrhea, abdominal pain, chest pain, cough, shortness of breath (SUSI GORDON) Allergies and Home Medications Allergies Coded Allergies: No Known Drug Allergies (Unverified , 03/11/12) Patient Home Medication List Home Medication List Reviewed: Yes (SUSI GORDON) Cephalexin (Cephalexin) 500 Mg Tablet, 500 MG PO QID Prescribed by: MARTÍN PETERS on 01/16/231717 Docusate Sodium (Docusate Sodium) 100 Mg Capsule, 100 MG PO BID Prescribed by: ELAN NOYOLA on 04/11/18 07 Hydrocodone Bit/Acetaminophen (Lortab 5 Mg Tablet) 1 Tab Tab, 1-2 TAB PO Q4H PRN for PAIN-MODERATE Prescribed by: ELAN NOYOLA on 04/11/18 07 Hydrocodone/Acetaminophen (Hydrocodone-Acetamin 5-325 mg) 5 Mg-325 Mg Tablet, 1 TAB PO Q4H PRN for PAIN-MODERATE (5-7) Prescribed by: MARTÍN PETERS on 12/27/222050 Ibuprofen (Ibu) 600 Mg Tablet, 600 MG PO Q6H Prescribed by: ELAN NOYOLA on 04/11/18 07 Multivitamin (Flintstones) 1 Each Tab.chew, 1 EACH PO DAILY, (Reported) Entered as Reported by: VANDANA CLEVELAND on 09/24/16 0145 Sulfamethoxazole/Trimethoprim (Bactrim Ds Tablet) 800 Mg-160 Mg Tablet, 1 EACH PO BID Prescribed by: MARTÍN PETERS on 01/16/23 1718 Review of Systems Review of Systems Constitutional: No chills, No diaphoresis, No malaise, No weakness EENTM: No ear pain, No blurred vision, No double vision Respiratory: No cough, No dyspnea on exertion Cardiovascular: No chest pain, No edema Gastrointestinal: No abdominal pain, No diarrhea, No nausea, No vomiting Genitourinary: No decreased output, No discharge, No dysuria, No frequency Musculoskeletal: No back pain, No joint pain Skin: change in color, other (Abscess right leg) (SUSI GORDON) All Other Systems Reviewed Negative Unless Noted: Yes (SUSI GORDON) Past Jwnbday-Dcjcuj-Oxzmlc Hx Immunizations Up To Date Tetanus Booster (TDap): Unknown (SUSI GORDON) Seasonal Allergies Seasonal Allergies: No (SUSI GORDON) Past Medical History Surgeries: Yes Section Respiratory: No Cardiac: No Neurological: No Reproductive Disorders: No Genitourinary: No Gastrointestinal: No Musculoskeletal: No Endocrine: No HEENT: No Cancer: No Psychosocial: No Integumentary: No Blood Disorders: No Adverse Reaction/Blood Tranf: No (SUSI GORDON) Family Medical History Family history: Cardiovascular disease (MATERNAL GRANDFATHER HAS COPD. ) Stroke (MATERNAL GRANDFATHER ) No Family History of: Abdominal aortic aneurysm Mynor's disease Alcoholism Aphasia Cancer Cancer of colon Cataract Chest pain Congenital heart disease Congestive heart failure Cystic fibrosis Dementia Dysphagia Family history: Allergy Family history: Alzheimer's disease Family history: Arthritis Family history: Asthma Family history: Breast disease Family history: Coronary thrombosis Family history: Diabetes mellitus Family history: Gastrointestinal disease Family history: Glaucoma Family history: Hypertension Family history: Osteoporosis Family history: Thyroid disorder Headache Hearing loss Heart disease Hereditary disease History of - anemia History of - disorder History of - respiratory disease History of drug abuse Human immunodeficiency virus (HIV) seropositivity Hypercholesterolemia Infertile Kidney disease Malignant neoplasm of lung Myocardial infarction Parkinson's disease Prostate cancer Psychotic disorder Seizure disorder Tuberculosis Visual impairment No Pertinent Family Hx (SUSI GORDON) Physical Exam Vital Signs Vital Signs - First Documented 01/16/23 16:48 Pulse 107 Resp 20 B/P (MAP) 126/84 (98) Pulse Ox 99 O2 Delivery Room Air (PATRICIA KAYE MD) Vital Signs Capillary Refill : (SUSI GORDON) General Appearance: WD/WN, no apparent distress HEENT: PERRL/EOMI, normal ENT inspection, TMs normal, pharynx normal Neck: non-tender, full range of motion, supple, normal inspection Cardiovascular: regular rate, rhythm, no edema, no gallop, no JVD Respiratory: chest non-tender, lungs clear, normal breath sounds, no respiratory distress, no accessory muscle use Gastrointestinal: normal bowel sounds, non tender, soft Back: normal inspection, no CVA tenderness Extremities: normal range of motion, non-tender, normal inspection, no pedal edema 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 Fluctuant mass. Surrounding erythema. Tenderness to palpate. Erythematous papule noted to the right lower buttock. Localized redness without any fluctuant mass.) (SUSI GORDON) Procedures/Interventions I&D : Site: Right sided labia Blade Size: 11 I & D Procedure: betadine prep Packing/Drain: Idoform / Progress Large right-sided labial abscess. Prepped with iodine. 1 cm incision with large amount of purulent drainage. Clean the area with normal saline and Shur- Clens. Packed the area with iodoform quarter-inch. Patient tolerated procedure well. (SUSI GORDON) Progress/Results/Core Measures Results/Orders Vital Signs/I&O 01/16/23 16:48 Pulse 107 Resp 20 B/P (MAP) 126/84 (98) Pulse Ox 99 O2 Delivery Room Air (PATRICIA KAYE MD) Departure Communication (PCP) Reviewed previous ER visits, H&P, lab testing. Patient presents ED with a right labial abscess and a developing erythematous papule to right lower buttock. Right labial abscess moderate size. Incision and drainage with large amount of purulent drainage. Iodoform quarter inch packing was placed. Remove in 2 to 3 days. May return back to ED for packing removal is recommend to asses the wound. Patient tolerated procedure well. Pain improved. Indurated erythematous lesion to the right lower buttock. Does not appear fluctuant. No incision and drainage at this time. If this area becomes worse increase in size with redness to return back to ED for potential drainage. Recommend following up in 2 to 3 days for packing removal. Okay to take a shower. Will discharge with Keflex and Bactrim for staph, strep and MRSA coverage. Anti-inflammatories for pain. (SUSI GORDON) Impression Primary Impression: Labial abscess Disposition: 01 HOME, SELF-CARE Condition: Stable Departure-Patient Inst. Referrals: ABBY VAZQUEZ MD (PCP/Family) Primary Care Physician Patient Instructions: Cellulitis (Skin Infection), Adult (DC) Scripts Sulfamethoxazole/Trimethoprim (Bactrim Ds Tablet) 800 Mg-160 Mg Tablet 1 EACH PO BID for 7 Days, #14 TAB Prov: SUSI GORDON 01/16/23 Cephalexin (Cephalexin) 500 Mg Tablet 500 MG PO QID for 7 Days, #28 TAB Prov: SUSI GORDON 01/16/23 Work/School Note: Work Release Form Date Seen in the Emergency Department: Jan 16, 2023 Return to Work: Jan 18, 2023 ATTENDING PHYSICIAN NOTE: I was physically present as attending physician in the emergency department during the care of this patient, but I was not directly involved in the decision making or delivery of care for this patient. (PATRICIA KAYE MD) SUSI GORDON Jan 16, 2023 16:58 PATRICIA KAYE MD Jan 17, 2023 09:09
[2023-01-16] MEDS ORDERED: LIDOCAINE 1% INJ 10 ML VIAL INJ ONE (17:00)
[2023-01-16] MEDS ORDERED: CEPH500T PO (17:18)
[2023-01-16] MEDS ORDERED: SULF-221 PO (17:18)
== END 2023-01-16 17:29 | disposition home or self-care (01) ==
LOC: EDUNIT# 16:40 → ER 16:42
DX: N76.4 Abscess of vulva (principal)
CPT/HCPCS: 10061

== ENCOUNTER 2023-06-02 23:36 | Emergency (ER) | payer SELFPAY ==
[~2023-06-02 23:36] MED LIST changes: +CEPH500T PO; +SULF-221 PO
[2023-06-03] MEDS ORDERED: RX-TRIMETH/SULFA. 160-800 MG (BACTRIM DS) TAB PPK#2 PO STA (00:05)
[2023-06-03] MEDS ORDERED: RX-NAPROXEN (NAPROSYN) 250 MG TAB PPK#4 PO STA (00:05)
[2023-06-03] MEDS ORDERED: LIDOCAINE 1% INJ 10 ML VIAL ONE (00:06)
[2023-06-03] MEDS ORDERED: SULF1TAB38 PO (00:09)
[2023-06-03] MEDS ORDERED: NAPR500T8 PO (00:09)
[2023-06-03] MEDS ORDERED: TRAM50TA3 PO (00:09)
--- NOTE | 2023-06-03 00:10 | ED Integumentary General ---
General Chief Complaint: Skin/Wound Problems Stated Complaint: LEFT ARM BOIL,BURNING Nursing Triage Note: TO ED VIA POV AND AMBULATORY TO ROOM 5 WITH C/O LEFT AXILLARY ABSCESS. PT STATES NOTICED PAIN THURSDAY 05/31, ON 06/01 TRIED PRID, EPSOM SALT BATHS, WARM COMPRESSES. DENIES PAIN, BUT STATES "IT HEALY WHEN I MOVE MY ARM AROUND". Source: patient History of Present Illness Date Seen by Provider: Jun 03, 2023 Time Seen by Provider: 00:01 Initial Comments PT ARRIVES VIA POV FROM HOME C/O ABSCESS TO LEFT AXILLA SINCE SUNDAY THE AREA HAS CONTINUED TO GET BIGGER AND MORE PAINFUL SHE HAS BEEN APPLYING PRID, WARM PACKS AND EPSOM SALTS BATHS TO THE AREA STATES IT HEALY TO MOVE HER ARM NO KNOWN FEVER. HAS HAD SIMILAR IN HER GROIN/GENITAL AREA ABOUT 4-5 MONTHS AGO. WAS SEEN HERE AND HAD I&D DONE. DOES NOT KNOW WHAT KIND OF BACTERIA IT WAS. ON REVIEW OF PRIOR RECORD, DO NOT SEE ANY CULTURE REPORT. SHE WAS TREATED WITH KEFLEX AND BACTRIM PCP; DR. VAZQUEZ. ALSO GOES TO [facility] Allergies and Home Medications Allergies Coded Allergies: No Known Drug Allergies (Unverified , 03/11/12) Patient Home Medication List Home Medication List Reviewed: Yes Cephalexin (Cephalexin) 500 Mg Tablet, 500 MG PO QID Prescribed by: MARTÍN PETERS on 01/16/231717 Docusate Sodium (Docusate Sodium) 100 Mg Capsule, 100 MG PO BID Prescribed by: ELAN NOYOLA on 04/11/18 07 Hydrocodone Bit/Acetaminophen (Lortab 5 Mg Tablet) 1 Tab Tab, 1-2 TAB PO Q4H PRN for PAIN-MODERATE Prescribed by: ELAN NOYOLA on 04/11/18 07 Hydrocodone/Acetaminophen (Hydrocodone-Acetamin 5-325 mg) 5 Mg-325 Mg Tablet, 1 TAB PO Q4H PRN for PAIN-MODERATE (5-7) Prescribed by: MARTÍN PETERS on 12/27/222050 Ibuprofen (Ibu) 600 Mg Tablet, 600 MG PO Q6H Prescribed by: ELAN NOYOLA on 04/11/18 07 Multivitamin (Flintstones) 1 Each Tab.chew, 1 EACH PO DAILY, (Reported) Entered as Reported by: VANDANA CLEVELAND on 09/24/16 0145 Naproxen (Naproxen) 500 Mg Tablet.dr, 500 MG PO BID Prescribed by: MANUEL HAYWOOD on 06/03/238 Sulfamethoxazole/Trimethoprim (Bactrim Ds Tablet) 800 Mg-160 Mg Tablet, 1 EACH PO BID Prescribed by: MARTÍN PETERS on 01/16/23 1718 Sulfamethoxazole/Trimethoprim (Bactrim Ds Tablet) 1 Each Tablet, 1 EACH PO BID Prescribed by: MANUEL HAYWOOD on 06/03/238 Tramadol HCl (Tramadol HCl) 50 Mg Tablet, 50 MG PO Q4H Prescribed by: MANUEL HAYWOOD on 06/03/23 001 Review of Systems Review of Systems Constitutional: no symptoms reported : No (S/P BTL) LMP: May 22, 2023 Musculoskeletal: see HPI Skin: see HPI Psychiatric/Neurological: No Symptoms Reported Past Muyvcpp-Dsgrev-Weyott Hx Patient Social History Tobacco Use?: Yes Tobacco type used: Cigarettes Smoking Status: Current Everyday Smoker Use of E-Cig and/or Vaping dev: Yes E-Cig or Vaping type used: Nicotine Use of E-Cig and/or Vaping Lee: Current Everyday User Substance use?: No Additional substance use comme: DENIES Alcohol Use?: No Immunizations Up To Date Tetanus Booster (TDap): Unknown Seasonal Allergies Seasonal Allergies: No Past Medical History Surgeries: Yes Section, Tubal Ligation Respiratory: No Cardiac: No Neurological: No : No Reproductive Disorders: No CAR USHER History: Tubal Ligation Genitourinary: No Gastrointestinal: No Musculoskeletal: No Endocrine: No HEENT: No Cancer: No Psychosocial: No Integumentary: Yes (ABSCESS) Blood Disorders: No Adverse Reaction/Blood Tranf: No Family Medical History Family history: Cardiovascular disease (MATERNAL GRANDFATHER HAS COPD. ) Stroke (MATERNAL GRANDFATHER ) No Family History of: Abdominal aortic aneurysm Mynor's disease Alcoholism Aphasia Cancer Cancer of colon Cataract Chest pain Congenital heart disease Congestive heart failure Cystic fibrosis Dementia Dysphagia Family history: Allergy Family history: Alzheimer's disease Family history: Arthritis Family history: Asthma Family history: Breast disease Family history: Coronary thrombosis Family history: Diabetes mellitus Family history: Gastrointestinal disease Family history: Glaucoma Family history: Hypertension Family history: Osteoporosis Family history: Thyroid disorder Headache Hearing loss Heart disease Hereditary disease History of - anemia History of - disorder History of - respiratory disease History of drug abuse Human immunodeficiency virus (HIV) seropositivity Hypercholesterolemia Infertile Kidney disease Malignant neoplasm of lung Myocardial infarction Parkinson's disease Prostate cancer Psychotic disorder Seizure disorder Tuberculosis Visual impairment No Pertinent Family Hx Physical Exam Vital Signs Vital Signs - First Documented 06/02/23 23:50 Temp 37.2 Pulse 100 Resp 16 B/P (MAP) 117/85 (96) Pulse Ox 97 O2 Delivery Room Air Capillary Refill : Less Than 3 Seconds General Appearance: WD/WN, no apparent distress Cardiovascular: regular rate, rhythm Respiratory: normal breath sounds Extremities: normal range of motion Neurologic/Psychiatric: no motor/sensory deficits, alert, normal mood/affect, oriented x 3 Skin: normal color, warm/dry, other (LEFT AXILLA WITH LARGE ABSCESS AND SURROUNDING CELLULITIS EXTENDING TO LEFT LATERAL CHEST WALL. THERE IS FLUCTUANCE BUT NO POINTING. ) Procedures/Interventions I&D : Site: LEFT AXILLA Blade Size: 11 I & D Procedure: sterile drapes applied, sterile dressing applied, gauze wick placed, Wound Packing Packing/Drain: Idoform 1/4 Progress AREA CLEANSED WITH BETASEPT INJECTED WITH 1% LIDOCAINE PLAIN INCISED WITH #11 BLADE COPIOUS AMOUNTS OF PURULENT DRAINAGE CULTURE OF DRAINAGE OBTAINED AND ORDERED WOUND PROBED TO BREAK UP LOCULATIONS IRRIGATED WITH STERILE SALINE PACKED WITH 1/4" IODOFORM PACKING GAUZE DRESSED WITH STERILE DRESSING. PT TOLERATED VERY WELL. Progress/Results/Core Measures Results/Orders My Orders Orders - MANUEL HAYWOOD DO Wound Culture (06/03/23 00:05) Rx-Trimeth/Sulfameth Ds Tab (Rx-Bactrim/ (06/03/23 00:05) Rx-Naproxen (Rx-Naprosyn) (06/03/23 00:05) Rx-Tramadol Hcl (Rx-Ultram) (06/03/23 00:05) Lidocaine 1% Inj 10 Ml (Xylocaine 1% Inj (06/03/23 00:06) Medications Given in ED Current Medications Medications Dose Ordered Sig/Ricardo Route Start Time Stop Time Status Last Admin Dose Admin Lidocaine HCl 10 ml STK-MED ONCE .ROUTE 06/03/23 00:06 06/03/23 00:09 DC 06/03/23 00:20 10 ML Vital Signs/I&O 06/02/23 23:50 Temp 37.2 Pulse 100 Resp 16 B/P (MAP) 117/85 (96) Pulse Ox 97 O2 Delivery Room Air Blood Pressure Mean: 96 Progress Progress Note : Progress Note DISCUSSED ANTICIPATED COURSE, WOUND CARE, MEDICATIONS, NEED FOR FOLLOW UP AND RETURN PRECAUTIONS. REVIEWED PRIOR RECORDS Departure Impression Primary Impression: Abscess of left axilla Disposition: HOME, SELF-CARE Condition: Stable Departure-Patient Inst. Decision time for Depature: 00:35 Referrals: ABBY VAZQUEZ MD (PCP/Family) Primary Care Physician Patient Instructions: Abscess Incision and Drainage ED Add. Discharge Instructions: LEAVE PACKING IN IN PLACE. YOU MAY REPLACE WITH FRESH DRESSING TWICE A DAY ALTERNATE ICE AND HEAT TO AREA AT 20 MINUTE INTERVALS TYLENOL NEEDED FOR PAIN OR FEVER FOLLOW UP WITH DR. VAZQUEZ IN 2 DAYS FOR RECHECK--CALL ON SUNDAY TO SCHEDULE A FOLLOW UP APPOINTMENT RETURN TO ER IF SYMPTOMS WORSEN All discharge instructions reviewed with patient and/or family. Voiced understanding. Scripts Tramadol HCl (Tramadol HCl) 50 Mg Tablet 50 MG PO Q4H for Pain, #20 TAB Prov: MANUEL HAYWOOD DO 06/03/23 Naproxen (Naproxen) 500 Mg Tablet.dr 500 MG PO BID, #20 TAB Prov: MANUEL HAYWOOD DO 06/03/23 Sulfamethoxazole/Trimethoprim (Bactrim Ds Tablet) 1 Each Tablet 1 EACH PO BID, #20 TAB Prov: MANUEL HAYWOOD DO 06/03/23 Work/School Note: Work Release Form Date Seen in the Emergency Department: Jun 03, 2023 Return to Work: Jun 05, 2023 MANUEL HAYWOOD DO Jun 03, 2023 00:10
[2023-06-03 00:53] VITALS: BP 115/82
== END 2023-06-03 00:53 | disposition home or self-care (01) ==
LOC: EDUNIT# 23:36 → ER 23:41
DX: L02.412 Cutaneous abscess of left axilla (principal); F17.210 Nicotine dependence, cigarettes, uncomplicated; F17.290 Nicotine dependence, other tobacco product, uncomplicated; Z28.310 Unvaccinated for COVID-19
CPT/HCPCS: 10061; 87070; 87077; 87186; 87205

== ENCOUNTER 2023-09-04 11:34 | Day surgery (SDC) | payer BC ==
[~2023-09-04] VITALS: Ht 160 cm; Wt 72.4 kg
[2023-09-04] VITALS (9 sets, daily range): BP systolic 113–143; BP diastolic 61–96
[~2023-09-04 11:34] MED LIST changes: +NAPR500T8 PO; +SULF1TAB38 PO; +TRAM50TA3 PO
[2023-09-04] MEDS ORDERED: LACTATED RINGERS 1,000 ML BAG IV SCH (11:45)
[2023-09-04] MEDS ORDERED: NALOXONE 0.4 MG/ML 1 ML VIAL IV PRN (11:45)
[2023-09-04] MEDS ORDERED: morphine INJ 4 MG/ML 1 ML (VIAL/SYRINGE) IV PRN (11:45)
[2023-09-04] MEDS ORDERED: PIPERACILLIN/Tazobactam 4.5 GM in NS (IVPB) 100 ML 100 ML IV NR (12:00)
--- NOTE | 2023-09-04 12:07 | History & Physical-Surgical ---
History of Present Illness History of Present Illness Patient Consulted On(yessy/time) 09/04/23 12:00 Date Seen by Provider: Sep 04, 2023 Time Seen by Provider: 11:40 History of Present Illness This is a 28 yo female that presents with RUQ abdominal pain. Pain started at 12am this morning and has been constant, sharp pain that feels "like it shooting through to back". Pt has tried heating pad, position changes, and hot bath with no relief of pain. Breathing and eating worsens pain. Pt has had associated nausea and vomiting. Pain does not radiate. Pt states that she had similar pain 2 days ago that resolved spontaneously. No chest pain, headache, dysuria, sore throat. Positive for constipation, abdominal pain (RUQ and epigastric), SOA. LMP 08/11. PMH of chronic constipation. PSH includes , tubal ligation. NKDA. Miralax prn. Vapes daily. No tobacco use. EtOH use occasionally. No rec drug use. FH of younger sister with gallbladder removal. Last time to eat was 9pm on 09/03. Last drink of water was before going to ER this morning CC: RUQ abdominal pain. 28 year old female with right upper quadrant pain for some months. Worsened this morning sharp pain and radiates into back. Worse with food. Having nausea and vomiting. Went to be evaluated and had CT scan with findings of large gallstone and changes of cholecystitis. Allergies and Home Medications Allergies Coded Allergies: No Known Drug Allergies (Unverified , 03/11/12) Patient Home Medication List Home Medication List Reviewed: Yes No Active Prescriptions or Reported Meds Past Nhkrijf-Dhtmft-Swtsmm Hx Patient Social History Type Used: Electronic/Vapor 2nd Hand Smoke Exposure: No Recent Hopitalizations: No Immunizations Up To Date Tetanus Booster (TDap): Unknown Seasonal Allergies Seasonal Allergies: No Surgeries History of Surgeries: Yes (tubal) Surgeries: Section, Tubal Ligation Respiratory History of Respiratory Disorde: No Cardiovascular History of Cardiac Disorders: No Neurological History of Neurological Disord: No Reproductive System Hx Reproductive Disorders: 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 Genitourinary History of Genitourinary Disor: No Gastrointestinal History of Gastrointestinal Di: No Musculoskeletal History of Musculoskeletal Dis: No Endocrine History of Endocrine Disorders: No HEENT History of HEENT Disorders: No Cancer History of Cancer: No Psychosocial History of Psychiatric Problem: No Integumentary History of Skin or Integumenta: Yes (ABSCESS) Blood Transfusions History of Blood Disorders: No Adverse Reaction to a Blood Tr: No Reviewed Nursing Assessment Reviewed/Agree w Nursing PMH: Yes Family Medical History Significant Family History: No Pertinent Family Hx Family Medial History: Family history: Cardiovascular disease (MATERNAL GRANDFATHER HAS COPD. ) Stroke (MATERNAL GRANDFATHER ) No Family History of: Abdominal aortic aneurysm Mynor's disease Alcoholism Aphasia Cancer Cancer of colon Cataract Chest pain Congenital heart disease Congestive heart failure Cystic fibrosis Dementia Dysphagia Family history: Allergy Family history: Alzheimer's disease Family history: Arthritis Family history: Asthma Family history: Breast disease Family history: Coronary thrombosis Family history: Diabetes mellitus Family history: Gastrointestinal disease Family history: Glaucoma Family history: Hypertension Family history: Osteoporosis Family history: Thyroid disorder Headache Hearing loss Heart disease Hereditary disease History of - anemia History of - disorder History of - respiratory disease History of drug abuse Human immunodeficiency virus (HIV) seropositivity Hypercholesterolemia Infertile Kidney disease Malignant neoplasm of lung Myocardial infarction Parkinson's disease Prostate cancer Psychotic disorder Seizure disorder Tuberculosis Visual impairment Review of Systems-General Constitutional: No chills, No diaphoresis EENTM: No hearing loss, No double vision, No vision loss, No throat pain Respiratory: No cough, No dyspnea on exertion; short of breath Cardiovascular: No chest pain, No edema, No palpitations Gastrointestinal: abdominal pain (RUQ and epigastric pain), constipation (Last BM was 7 days ago); No diarrhea, No hematemesis; nausea, vomiting Genitourinary: No decreased output, No discharge, No dysuria LMP: Aug 11, 2023 Musculoskeletal: back pain; No joint pain Skin: No change in color, No change in hair/nails, No rash Psychiatric/Neurological: Anxiety; Denies Depressed, Denies Headache All Other Systems Reviewed Negative Unless Noted: Yes (Negative excepted noted.) Physical Exam-General Problems Physical Exam Vital Signs Capillary Refill : General Appearance: WD/WN, no apparent distress (uncomfortable) HEENT: PERRL/EOMI, pharynx normal Neck: full range of motion, tender lateral, other (Hypertonicity b/l of SCM muscles) Respiratory: chest non-tender, no respiratory distress, no accessory muscle use Cardiovascular: regular rate, rhythm, no edema Peripheral Pulses: 2+ Dorsalis Pedis (R), 2+ Left Dors-Pedis (L), 2+ Radial Pulses (R), 2+ Radial Pulses (L) Gastrointestinal: soft (and non-distended), no organomegaly, tenderness (ruq) Rectal: deferred Back: normal inspection, no CVA tenderness Extremities: normal range of motion, non-tender, no pedal edema, no calf tenderness 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, no motor/sensory deficits, alert, normal mood/affect, oriented x 3 Skin: normal color, warm/dry Lymphatic: no adenopathy Assessment/Plan Assessment/Plan Admission Diagonsis Symptomatic Cholecystitis symptomatic cholelithiasis ruq abdominal pain n/v cholecystitis Admission Status: Observation Assessment/Plan Assessment: Symptomatic Cholecystitis Chronic Constipation- 7 days since last BM Plan: NPO IV Fluids Prophylactic abx Pain medication Stool Softeners- miralax Obtain consent Surgery symptomatic cholelithiasis ruq abdominal pain n/v cholecystitis discussed risks and benefits of laparoscopic cholecystectomy with intraoperative cholangiogram all other indicated procedures she and family understand and wish to proceed. is on Zosyn NPO IV fluids to OR Supervisory-Addendum Brief Verification & Attestation Participated in pt care: history, MDM, physical Personally performed: exam, history, MDM, supervision of care Care discussed with: Medical Student Procedures: n/a Results interpretation: Verified all documentation Verification and Attestation of Medical Student E/M Service A medical student performed and documented this service in my presence. I reviewed and verified all information documented by the medical student and made modifications to such information, when appropriate. I personally performed the physical exam and medical decision making. Donna Heredia, Sep 04, 2023,15:40 CHEY MOSER Sep 04, 2023 12:07 DONNA HEREDIA DO Sep 04, 2023 15:37
[2023-09-04] MEDS: LACTATED RINGERS 1,000 ML 1,000 ML IV SCH ×2 (12:13→20:00)
[2023-09-04] MEDS ORDERED: IOPAMIDOL 61% 30 ML (ISOVUE 300) VIAL DUCT ONE (15:45)
[2023-09-04] MEDS ORDERED: LIDOCAINE 2% w/EPI 1:100,000 20 ML VIAL ONE (15:48)
[2023-09-04] MEDS ORDERED: ONDANSETRON INJECTION 4 MG/2 ML (SDV) ONE (16:09)
[2023-09-04] MEDS ORDERED: proPOfol INJECTION 200 MG/20 ML VIAL IV ONE (16:09)
[2023-09-04] MEDS ORDERED: SEVOFLURANE (ULTANE) 15 ML INHAL SOLN ONE ×3 (16:09→17:45)
[2023-09-04] MEDS ORDERED: MIDAZOLAM INJ 2 MG/2 ML VIAL ONE (16:09)
[2023-09-04] MEDS ORDERED: LIDOCAINE PF 2% 5 ML VIAL ONE (16:09)
[2023-09-04] MEDS ORDERED: fentaNYL INJECTION 100 MCG/2 ML VIAL ONE (16:09)
[2023-09-04 16:13] LABS: BACTERIA,URINE MODERATE /HPF; BILIRUBIN,URINE NEGATIVE (NEGATIVE); CLARITY,URINE CLEAR; COLOR,URINE YELLOW; GLUCOSE, URINE (UA) NEGATIVE (NEGATIVE); KETONES,URINE NEGATIVE (NEGATIVE); LEUKOCYTE ESTERASE ,URINE 1+ (NEGATIVE); NITRITE,URINE NEGATIVE (NEGATIVE); PH,URINE 7.5 (5-9); PROTEIN,URINE NEGATIVE (NEGATIVE)
[2023-09-04] MEDS ORDERED: morphine INJ 10 MG/ML 1ML (SYR OR VIAL) IVP ONE (16:15)
[2023-09-04] MEDS ORDERED: fentaNYL INJECTION 100 MCG/2 ML VIAL IVP ONE (16:15)
[2023-09-04] MEDS ORDERED: MEPERIDINE INJ 50 MG/ML VIAL IVP ONE (16:15)
[2023-09-04] MEDS ORDERED: ONDANSETRON INJECTION 4 MG/2 ML (SDV) IVP PRN ×2 (16:15→18:00)
[2023-09-04] MEDS: LACTATED RINGERS 1,000 ML 1,000 ML IV PRN ×2 (16:20→16:59)
[2023-09-04] MEDS ORDERED: ROCURONIUM 50 MG/5 ML VIAL IV ONE (16:35)
[2023-09-04] MEDS ORDERED: LIDOCAINE 2% w/EPI 1:100,000 20 ML VIAL INJ ONE (16:44)
[2023-09-04] MEDS ORDERED: ESMOLOL INJ 100 MG/10 ML VIAL ONE (16:47)
[2023-09-04] MEDS ORDERED: morphine INJ 10 MG/ML 1ML (SYR OR VIAL) ONE (17:06)
--- NOTE | 2023-09-04 17:42 | Diagnostic Imaging Report ---
Result: History: 28 years-old Female with laparoscopic cholecystectomy Comparison: None. Technique: 24 intraoperative fluoroscopic images of the abdomen in the frontal projection. Fluoroscopic Time: 7.4 seconds Dose: 3.3 mGy Findings: Intraoperative fluoroscopic images were obtained during the cholecystectomy. Cine clip demonstrates cannulation of the common bile duct with contrast flowing through the common bile duct and no filling defects seen. Contrast flows into the duodenum. There is one static image which shows some contrast projecting in the midline in the right upper quadrant. Impression: Fluoroscopic intraoperative images obtained during cholecystectomy. Contrast flows through the common bile duct and into the duodenum. One static image demonstrates contrast projecting over the abdomen, it is unclear if this is spilling of contrast or external to the patient. Please refer to procedure note. Dictated by: Dictated on workstation # [id number]
[2023-09-04] MEDS ORDERED: GLYCOPYRROLATE INJ 0.2 MG/ML 2 ML VIAL ONE (17:44)
[2023-09-04] MEDS ORDERED: NEOSTIGMINE 1 MG/1ML 10 ML VIAL ONE (17:44)
--- NOTE | 2023-09-04 18:06 | Progress Note-Post Operative ---
Post-Operative Progess Note Surgeon (s)/Radial Drill Operator For Plastic (s) Surgeon DONNA PEREZ DO Radial Drill Operator For Plastic: Dr. Worley Pre-Operative Diagnosis symptomatic cholelithiasis, cholecystitis Post-Operative Diagnosis same Procedure & Operative Findings Date of Procedure 09/04/23 Procedure Performed/Findings PROCEDURE: Laparoscopic cholecystectomy with intraoperative cholangiogram. COMPLICATIONS: None. PROCEDURE: The patient was taken to the operating suite and was prepped and draped in sterile fashion. A surgical pause was performed. Just superior to the umbilicus, a 12 mm incision was made. Dissection was taken down to the fascia, which was then scored and grasped with a Felix and the abdomen was then entered. A 0 Vicryl suture was placed in a [id number] fashion and a Andrade trocar was placed and secured. Pneumoperitoneum was achieved. A 5mm trochar place in the subxyphoid and 2 in the right upper quadrant. The gallbladder was then grasped and elevated by Dr. Worley. It was distended and acutely inflamed. Edema around the gallbladder. Adhesions were taken down with blunt and cautery dissection. The cystic duct, and cystic artery were then dissected out. Clip was placed on the distal portion of the cystic duct which was then partially transected. An arrow catheter was inserted into the duct. The cholangiogram was then performed. No filing defects and contrast made its way into the duodenum. Catheter removed. Clips were placed on proximal portion of the cystic duct and then the duct was then transected. Clips were placed along the proximal and distal portion of the cystic artery which was then transected. Hook cautery was used to dissect the gallbladder from the gallbladder fossa achieving hemostasis. The gallbladder was placed in an Endobag and removed through the 12 mm trocar site. The abdomen was then reinspected. Copious amounts of irrigation were used to irrigate the abdomen and there were no signs of active bleeding. 19 Luis Eduardo drain was inserted and brought out through lateral 5 mm trochar and secured. Hemostasis had been achieved. The 12 mm fascial defect was then closed with 0 Vicryl suture that had been placed in a [id number] fashion. The abdomen was then desufflated, the trocars were removed. The abdomen was then washed and dried. The skin was then closed using 4-0 Monocryl in a subcuticular fashion. The abdomen was washed and dried and Skin Affix was place over incisions. Patient tolerated the procedure well without any complications and was taken to the recovery room in stable condition. Anesthesia Type general Estimated Blood Loss Estimated blood loss (mL): minimal Specimens/Packing Specimens Removed gallbladder DONNA PEREZ DO Sep 04, 2023 18:06
[2023-09-04] MEDS: PIPERACILLIN/Tazobactam 4.5 GM in NS (IVPB) 100 ML 100 ML IV SCH (18:53)
[2023-09-04] MEDS: HYDROcodone/ACETAMINOPHEN 5 MG/325 MG TABLET PO PRN (19:55)
[2023-09-04] MEDS: morphine INJ 4 MG/ML 1 ML (VIAL/SYRINGE) IV PRN (20:56)
[2023-09-05 01:30] VITALS: BP 130/72
[2023-09-05] MEDS: LACTATED RINGERS 1,000 ML 1,000 ML IV SCH ×2 (02:59→12:20)
[2023-09-05] MEDS: HYDROcodone/ACETAMINOPHEN 5 MG/325 MG TABLET PO PRN ×3 (02:59→14:57)
[2023-09-05] MEDS: PIPERACILLIN/Tazobactam 4.5 GM in NS (IVPB) 100 ML 100 ML IV SCH ×2 (02:59→09:56)
[2023-09-05 04:00] VITALS: BP 140/68
[2023-09-05 07:15] VITALS: BP 113/65
--- NOTE | 2023-09-05 07:42 | Progress Note - Surgery ---
CHEY MOSER 09/05/23 0742: Subjective Date Seen by a Provider: Sep 05, 2023 Time Seen by a Provider: 07:38 Subjective/Events-last exam Patient is lying comfortably with soreness of RUQ. Pt has not had drink or food yet, but room service brought in a tray. Pt is able to walk around and is having no issues with urinating. Pt has not had a BM. Incisions are not erythematous, swollen, or exuding pus. Fluid from drain tube is serosanguinous. Denies nausea, vomiting, chest pain, SOA, fever, cough, dysuria. Review of Systems General: No Chills, No Night Sweats HEENT: No Head Aches, No Visual Changes Pulmonary: No Dyspnea, No Cough Cardiovascular: No: Chest Pain, Palpitations Gastrointestinal: Abdominal Pain (ruq), Constipation; No: Nausea, Vomiting Genitourinary: No Dysuria, No Frequency Musculoskeletal: No: neck pain, shoulder pain Neurological: No: Weakness, Numbness Objective Exam Vital Signs Date Time Temp Pulse Resp B/P (MAP) Pulse Ox O2 Delivery O2 Flow Rate FiO2 09/05/23 07:15 37.7 91 16 113/65 (81) 92 Room Air 09/05/23 04:00 37.0 82 18 140/68 (92) 94 Room Air 09/05/23 01:30 36.8 88 18 130/72 (91) 97 Room Air 09/04/23 21:30 Room Air 09/04/23 20:00 Room Air 09/04/23 19:06 36.7 98 20 135/88 (104) 97 Room Air 09/04/23 18:50 36.3 20 131/93 (106) 94 Room Air 09/04/23 18:50 Room Air 09/04/23 18:45 Room Air 09/04/23 18:40 20 130/89 (103) 94 Room Air 09/04/23 18:30 Room Air 09/04/23 18:30 20 127/78 (94) 97 Room Air 09/04/23 18:20 20 120/78 (92) 100 OxyMask 3.00 09/04/23 18:15 OxyMask 3.00 09/04/23 18:10 20 118/76 (90) 100 OxyMask 3.00 09/04/23 18:03 OxyMask 6.00 09/04/23 18:03 36.3 18 113/61 (78) 99 OxyMask 6.00 09/04/23 16:00 37.4 70 16 125/78 (94) 96 Room Air 09/04/23 13:39 Room Air 09/04/23 12:49 36.7 71 18 143/96 (112) 100 Room Air I & O 09/05/23 06:59 Intake Total 1650 ml Output Total 55 ml Balance 1595 ml Capillary Refill : Less Than 3 Seconds General Appearance: No Apparent Distress, WD/WN HEENT: PERRL/EOMI, Pharynx Normal Neck: Full Range of Motion, Normal Inspection, Non Tender Respiratory: Chest Non Tender, Lungs Clear, Normal Breath Sounds, No Accessory Muscle Use, No Respiratory Distress Cardiovascular: Regular Rate, Rhythm, No Edema, No Murmur Peripheral Pulses: 2+ Dorsalis Pedis (R), 2+ Left Dors-Pedis (L), 2+ Radial Pulses (R), 2+ Radial Pulses (L) Gastrointestinal: soft (and non-distended), no organomegaly, tenderness (ruq) Neurologic/Psychiatric: Alert, Oriented x3, No Motor/Sensory Deficits, Normal Mood/Affect Skin: Normal Color, Warm/Dry Lymphatic: No Adenopathy Results Lab Laboratory Tests 09/04/23 15:50: Urine Color YELLOW, Urine Clarity CLEAR, Urine pH 7.5, Urine Specific [place] 1.015L, Urine Protein NEGATIVE, Urine Glucose (UA) NEGATIVE, Urine Ketones NEGATIVE, Urine Nitrite NEGATIVE, Urine Bilirubin NEGATIVE, Urine Urobilinogen 0.2, Urine Leukocyte Esterase 1+H, Urine RBC (Auto) NEGATIVE, Urine RBC NONE, Urine WBC 10-25H, Urine Squamous Epithelial Cells 5-10, Urine Crystals NONE, Urine Bacteria MODERATEH, Urine Casts NONE, Urine Mucus NEGATIVE, Urine Culture Indicated YES, Urine Test NEGATIVE Assessment/Plan Assessment/Plan Assessment/Plan Assessment: s/p Symptomatic Cholecystitis Chronic Constipation- 8 days since last BM Plan: Clear liquids, if tolerating advance diet to solids Pain medication Stool Softeners- rx miralax for at home Discharge home today DONNA HEREDIA DO 09/05/23 1936: Subjective Subjective/Events-last exam Doing well. Feeling better. Pain controlled. Denies n/v fever sweats chills shortness of breath or chest pain. Drain serosang. No family at bedside. Objective Exam General Appearance: No Apparent Distress, WD/WN HEENT: PERRL/EOMI, Normal ENT Inspection Neck: Normal Inspection, Non Tender Respiratory: Chest Non Tender, No Accessory Muscle Use, No Respiratory Distress Cardiovascular: Regular Rate, Rhythm, No JVD Gastrointestinal: soft (and non-distended), tenderness (incisional, incisions c/d/i no signs infection, radha serosang) Extremity: Non Tender, No Calf Tenderness Neurologic/Psychiatric: Alert, Oriented x3, Normal Mood/Affect Skin: Normal Color, Warm/Dry Lymphatic: No Adenopathy Assessment/Plan Assessment/Plan Assessment/Plan ruq abdominal pain symptomatic cholelithiasis cholecystitis s/p lap arnol c ioc pain controlled oral pain medication use IS RADHA drain will remove when drainage less than 30 mL in 24 hrs, she is to notify office can dc home. Final Diagnosis ruq abdominal pain symptomatic cholelithiasis cholecystitis s/p lap arnol c ioc Supervisory-Addendum Brief Verification & Attestation Participated in pt care: history, MDM, physical Personally performed: exam, history, MDM, supervision of care Care discussed with: Medical Student Procedures: n/a Results interpretation: Verified all documentation Verification and Attestation of Medical Student E/M Service A medical student performed and documented this service in my presence. I reviewed and verified all information documented by the medical student and made modifications to such information, when appropriate. I personally performed the physical exam and medical decision making. Donna Heredia, Sep 05, 2023,19:36 CHEY MOSER Sep 05, 2023 07:42 DONNA HEREDIA DO Sep 05, 2023 19:36
[2023-09-05] MEDS: morphine INJ 4 MG/ML 1 ML (VIAL/SYRINGE) IV PRN (08:18)
[2023-09-05 11:19] VITALS: BP 119/74
--- NOTE | 2023-09-05 12:36 | Anesthesia-General Post-Op ---
General Patient Condition Mental Status/LOC: Same as Preop Cardiovascular: Satisfactory Nausea/Vomiting: Absent Respiratory: Satisfactory Pain: Controlled Complications: Absent Post Op Complications Complications None Follow Up Care/Instructions Patient Instructions None needed. Anesthesia/Patient Condition Patient Condition Patient is doing well, no complaints, stable vital signs, no apparent adverse anesthesia problems. No complications reported per nursing. HERI NIÑO CRNA Sep 05, 2023 12:36
--- NOTE | 2023-09-05 15:45 | Discharge Inst-Simple/Standard ---
Discharge Inst-Standard Discharge Medications New, Converted or Re-Newed RX: Transmitted to Pharmacy Patient Instructions/Follow Up Plan of Care/Instructions/FU: 2 weeks Yan Activity as Tolerated: No Discharge Diet: Regular Diet Other Inst to Patient Follow up Appt: Make appointment for 2 weeks. Instructions: No lifting greater than 10 pounds. No strenuous activity. May shower in 24 hours, no tub bath or soaking. Use incentive spirometer at home as directed. No Smoking Skin/Wound Care: You have special glue over incision, it will fall off on it's own. Symptoms to Report: Appetite Changes, Extremity Discoloration, Numbness/Tingling, Swelling Increased, Bleeding Excessive, Eyesight Changes, Pain Increased, Urine Color Change, Constipation(Persistent), Fever over 101 degree F, Pain/Pressure in chest, Urinating Difficulty, Cough Up/Vomit Blood, Heart Beat Irreg/Pounding, Pain/Pressure in jaw, Vaginal Bleeding Increase, Cramps in feet or legs, Lightheadedness, Pain/Pressure in shoulder, Diarrhea(Persistent), Memory Changes Suddenly, Questions/Concerns, Weight gain consecutive days, Dizziness/Fainting, Nausea/Vomiting, Shortness of Breath, Weight gain over 2 pounds. If eyes or skin turn yellow notify physician. If questions or concerns contact your physician Or seek help at emergency department. DONNA PEREZ DO Sep 05, 2023 15:45
[2023-09-05 15:46] VITALS: BP 122/87
[2023-09-05] MEDS ORDERED: ACHD5005 PO (15:46)
[2023-09-05] MEDS ORDERED: DOCU-143 PO (15:46)
[2023-09-05 17:16] VITALS: BP 122/87
== END 2023-09-05 17:15 | disposition home or self-care (01) ==
LOC: 4TH 11:34 → SDC 11:34 → EDSTATUS 17:02 → SDC 09-05 17:15 → UNDODISOB 09-05 17:15
PROVIDERS: ATTEND Surgery
DX: K80.10 Calculus of gallbladder with chronic cholecystitis without obstruction (principal); F17.290 Nicotine dependence, other tobacco product, uncomplicated; K59.09 Other constipation
CPT/HCPCS: 76000; 81000; 84703; 87088; 88304; 94664; 96361; 96374; 96375; 96376